=== PATIENT | female | born 2005 | race Caucasian/White ===

== ENCOUNTER 2024-05-18 17:56 | Emergency (ER) | payer OTHER ==
[2024-05-18 18:22] VITALS: BP 135/78; PULSE 93; RESP 16; TEMP 97; BMI 23.7
[2024-05-18] MEDS: ACETAMINOPHEN 500 MG TABLET (FP) PO ONE (20:48)
[2024-05-18 20:58] LABS: HCG,QUALITATIVE URINE Negative
[2024-05-18 21:02] LABS: URINE APPEARANCE CLEAR; URINE BILIRUBIN NEGATIVE (NEGATIVE); URINE COLOR YELLOW; URINE GLUCOSE (UA) NEGATIVE (NEGATIVE); URINE KETONE NEGATIVE (NEGATIVE); URINE LEUK ESTERASE NEGATIVE (NEGATIVE); URINE NITRITE NEGATIVE (NEGATIVE); URINE PROTEIN NEGATIVE (NEGATIVE); URINE UROBILINOGEN 0.2 mg/dL (0.2-1.0)
[2024-05-18] MEDS ORDERED: KETOROLAC TROMETHAMINE 30 MG/1 ML VIAL ONE (22:13)
[2024-05-18] MEDS: KETOROLAC TROMETHAMINE 30 MG/1 ML VIAL IM ONE (22:17)
== END 2024-05-18 22:19 | disposition home or self-care (01) ==
LOC: JER 17:56
PROC: 3E0133Z Introduction of Anti-inflammatory into Subcutaneous Tissue, Percutaneous Approach (ICD-10-PCS; principal; 2024-05-18)
DX: N83.201 Unspecified ovarian cyst, right side (principal); R10.32 Left lower quadrant pain; R39.15 Urgency of urination
CPT/HCPCS: 76830-TC; 81003; 84703; 87086; 99284-25